=== PATIENT | male | born 1990 | race African-American/Black ===

== ENCOUNTER 2019-07-29 22:46 | Emergency (ER) | payer BC ==
[~2019-07-29] VITALS: Ht 182.9 cm; Wt 68.0 kg
[2019-07-29 23:43] VITALS: BP 123/84
== END 2019-07-29 23:44 | disposition home or self-care (01) ==
LOC: ER 23:02
DX: R51 Headache (principal)
CPT/HCPCS: 99282

== ENCOUNTER 2023-06-26 17:20 | Emergency (ER) | payer BC, OTHER ==
[~2023-06-26] VITALS: Ht 185.4 cm; Wt 72.6 kg
[2023-06-26 17:34] VITALS: BP 117/72; TEMP 98; O2SAT 100
[2023-06-26] MEDS ORDERED: IBUP-2029 MT (18:59)
[2023-06-26] MEDS ORDERED: AMOX1TAB16 MT (18:59)
[2023-06-26] MEDS: IBUPROFEN 600MG TABLET PO ONE (19:17)
[2023-06-26 19:18] VITALS: PULSE 74; RESP 16
== END 2023-06-26 19:19 | disposition home or self-care (01) ==
LOC: ER 17:20
DX: S02.5XXA Fracture of tooth (traumatic), initial encounter for closed fracture (principal); X58.XXXA Exposure to other specified factors, initial encounter; Y93.89 Activity, other specified; Y92.89 Other specified places as the place of occurrence of the external cause; Y99.8 Other external cause status
CPT/HCPCS: 99282; 99283